=== PATIENT | female | born 2000 | race Caucasian/White ===

== ENCOUNTER 2021-04-30 16:03 | Emergency (ER) | payer MEDICAID ==
[~2021-04-30] VITALS: Ht 162.6 cm; Wt 52.0 kg
[2021-04-30] MEDS ORDERED: HYDROCODONE/ACETAMINOPHEN 5/325MG TABLET PO ONE (16:30)
[2021-04-30] MEDS ORDERED: CLINDAMYCIN 600 MG in DEXTROSE 5% WATER 50 ML IV ONE (17:45)
[2021-04-30] MEDS ORDERED: MORPHINE SULFATE 4 MG/ML CPJ (NOT FOR IM USE) IV ONE ×2 (17:45→20:15)
[2021-04-30] MEDS ORDERED: ONDANSETRON HCL 4MG/2ML INJ IV ONE (17:45)
[2021-04-30 18:34] LABS: BASOPHILS % 0.3 % (0.0-2.0); EOSINOPHILS % 0.1 % (0.0-5.0); HEMOGLOBIN. 12.4 g/dL (12.0-16.0); LYMPHOCYTES % 16.8 % (20.0-50.0); MEAN CORPUSCULAR HEMOGLOBIN 30.5 pg (28.0-32.0); MEAN CORPUSCULAR VOLUME 90.9 fL (81.0-99.0); MEAN PLATELET VOLUME 7.7 fl (7.4-10.4); MONOCYTES % 5.9 % (2.0-8.0); NEUTROPHILS % 76.9 % (40.0-76.0); PLATELET 306 x1000/uL (130-400); RED BLOOD CELL COUNT 4.07 mill/uL (4.2-5.4); RED CELL DISTRIBUTION WIDTH 13.6 % (11.6-14.6)
[2021-04-30 18:36] LABS: CHLORIDE 105 mEq/L (98-107)
[2021-04-30] MEDS ORDERED: CLINDAMYCIN 600MG PREMIX 50 ML IV NR (20:30)
[2021-04-30] MEDS ORDERED: OXYC-100 MT (22:25)
[2021-04-30] MEDS ORDERED: AMOX-424 MT (22:33)
[2021-04-30] MEDS ORDERED: KETOROLAC 15MG/ML VIAL IV ONE (22:45)
[2021-04-30 22:49] VITALS: BP 101/64
[2021-05-01] MEDS ORDERED: OXYC-100 MT ×2 (00:10→00:41)
[2021-05-01] MEDS ORDERED: AMOX-424 MT (00:41)
== END 2021-04-30 22:52 | disposition home or self-care (01) ==
LOC: ER 16:03
DX: S02.601A Fracture of unspecified part of body of right mandible, initial encounter for closed fracture (principal); S02.652A Fracture of angle of left mandible, initial encounter for closed fracture; Z90.5 Acquired absence of kidney; Z87.828 Personal history of other (healed) physical injury and trauma; Y04.0XXA Assault by unarmed brawl or fight, initial encounter; Y93.89 Activity, other specified; Y92.524 Gas station as the place of occurrence of the external cause
CPT/HCPCS: 36415; 70486; 80053; 81025; 85025; 96365; 96375; 96376; 99284; J1885; J2270; J2405; J3490; J7060